=== PATIENT | female | born 1975 | race African-American/Black ===

== ENCOUNTER 2017-10-24 05:17 | Inpatient (IN) | payer BC ==
[~2017-10-24] VITALS: Ht 170.2 cm; Wt 119.0 kg
[~2017-10-24 05:17] MED LIST: BYST5TAB2 PO; DIOV160T9 PO; LEVO88TA2 PO; PANT20 PO
[2017-10-24] MEDS ORDERED: APREPITANT 40 MG CAP PO SCH (06:15)
[2017-10-24] MEDS ORDERED: METOPROLOL TARTRATE 25 MG TAB PO PRN (06:15)
[2017-10-24] MEDS ORDERED: metroNIDAZOLE 500 MG INJ 100 ML IV SCH (06:15)
[2017-10-24] MEDS ORDERED: SCOPOLAMINE 1.5 MG PATCH T-DERMAL SCH (06:15)
[2017-10-24] MEDS ORDERED: ceFAZolin 2 GM PREMIX 50 ML IV SCH (06:15)
[2017-10-24] MEDS ORDERED: ONDANSETRON ODT 4 MG TAB PO SCH (06:15)
[2017-10-24] MEDS ORDERED: POVIDONE IODINE 5% (ANTISEPSIS KIT) 4 APPLICATIONS EACH NARE PRN (06:15)
[2017-10-24] MEDS ORDERED: CHLORHEXIDINE GLUCONATE 2 % 1 PACK (2 CLOTHS) TOPICAL PRN (06:15)
[2017-10-24] MEDS ORDERED: ACETAMINOPHEN 1000 MG/100 ML 100 ML IV SCH (06:15)
[2017-10-24] MEDS ORDERED: SODIUM CHLORID 0.9% 500 ML IV PRN (06:15)
[2017-10-24] MEDS ORDERED: LACTATED RINGER'S 1000 ML IV PRN (06:15)
[2017-10-24] MEDS ORDERED: KETAMINE HCL 50 MG/5 ML SYRINGE ONE (06:33)
[2017-10-24] MEDS ORDERED: CLON0.1T PO (06:36)
[2017-10-24] MEDS ORDERED: BUPIVACAINE/EPINEPHRINE 0.5% PF 10 ML VIAL ONE ×2 (06:58)
--- NOTE | 2017-10-24 07:31 | HHI.PR ---
Immediate Post Op Note Procedure Date: Oct 24, 2017 Pre Op Diagnosis: morbid obesity bmi 40, HTN, Gerd Post Op Diagnosis: same Surgeon: Yang Bhardwaj MD Manager Fixed Income(s): kayla Procedure: lap vertical sleeve Findings: no leak Complications: none Specimen(s) removed: none Estimated blood loss: 5cc Anesthesia: General Drains: None Patient to: PACU Patient Condition: Good Yang Bhardwaj MD Oct 24, 2017 07:31
[2017-10-24] MEDS ORDERED: ACETAMINOPHEN 325MG/HYDROcodone 7.5MG/15ML UDC PO PRN (07:45)
[2017-10-24] MEDS ORDERED: diphenhydrAMINE HCL 50 MG/ML VIAL IV PUSH PRN (07:45)
[2017-10-24] MEDS ORDERED: MORPHINE SULFATE 30 MG/30 ML PCA IV SCH (07:45)
[2017-10-24] MEDS ORDERED: NALOXONE HCL 0.4 MG/ML AMP IV PUSH PRN (07:45)
[2017-10-24] MEDS ORDERED: diphenhydrAMINE HCL ELIXIR 12.5 MG/5 ML CUP PO PRN (07:45)
[2017-10-24] MEDS ORDERED: SUGAMMADEX SODIUM 200 MG/2 ML VIAL IV PUSH ONE (09:23)
[2017-10-24] MEDS ORDERED: DO NOT ADM ANY ANTICOAGULANT DRUGS PRN (09:44)
[2017-10-24] MEDS ORDERED: MIDAZOLAM HCL 2 MG/2 ML VIAL ONE (09:55)
[2017-10-24] MEDS: D5-1/2 NS + KCL 20 MEQ INJ 1,000 ML IV SCH ×3 (10:00→20:20)
[2017-10-24] MEDS: METOCLOPRAMIDE HCL 10 MG/2 ML VIAL IV PUSH SCH ×3 (11:00→23:17)
[2017-10-24] MEDS: PANTOPRAZOLE SOD 40 MG DELAYED RELEASE TAB PO SCH (11:00)
[2017-10-24] MEDS ORDERED: LIDOCAINE HCL 1% PF 5 ML SYRINGE OTHER ONE (12:00)
[2017-10-24] MEDS ORDERED: GLYCOPYRROLATE 1 MG/5 ML SYRINGE IV PUSH ONE (12:00)
[2017-10-24] MEDS ORDERED: ROCURONIUM INJ 50 MG/5 ML SYRINGE IV PUSH ONE (12:00)
[2017-10-24] MEDS ORDERED: DEXAMETHASONE SOD PHOS 4 MG/ML VIAL IV ONE ×2 (12:00)
[2017-10-24] MEDS ORDERED: ONDANSETRON HCL 4 MG/2 ML VIAL IV PUSH ONE ×2 (12:00)
[2017-10-24] MEDS ORDERED: NEOSTIGMINE 5 MG/5 ML SYRINGE IV PUSH ONE (12:00)
[2017-10-24] MEDS ORDERED: LACTATED RINGER'S 1000 ML INJ 1,000 ML IV ONE ×2 (12:00)
[2017-10-24] MEDS ORDERED: ePHEDrine/NS 25 MG/5 ML SYRINGE IV ONE ×2 (12:00)
[2017-10-24] MEDS ORDERED: KETOROLAC TROMETHAMINE 30 MG/ML (IVP) VIAL IV PUSH ONE (12:00)
[2017-10-24] MEDS ORDERED: PROPOFOL 200 MG/20 ML AMP IV ONE ×2 (12:00)
[2017-10-24] MEDS ORDERED: PHENYLEPH/NS 1000 MCG/10 ML SYR IV ONE ×2 (12:00)
[2017-10-24] MEDS: ENOXAPARIN SODIUM 40 MG/0.4 ML SYRINGE SQ SCH (14:00)
[2017-10-24] MEDS: PCA - TOTAL MG MORPHINE DELIVERED PER SHIFT SCH ×2 (14:00→22:00)
[2017-10-24] MEDS: ONDANSETRON ODT 4 MG TAB PO PRN (14:15)
[2017-10-24] MEDS: metroNIDAZOLE 500 MG INJ 100 ML IV SCH ×2 (14:16→23:17)
--- NOTE | 2017-10-24 16:33 | MP ---
cc: Yang Bhardwaj MD DATE OF OPERATION: 10/24/2017 DATE OF PROCEDURE: 10/24/2017. PREOPERATIVE DIAGNOSIS: Morbid obesity, body mass index of 40, hypertension, reflux. POSTOPERATIVE DIAGNOSES: Morbid obesity, body mass index of 40, hypertension, reflux. PROCEDURE PERFORMED: Laparoscopic vertical sleeve gastrectomy over a 36 ViSiGi bougie. SURGEON: Yang Bhardwaj MD ENERGY EFFICIENCY ENGINEER: See the OR sheet. ANESTHESIA: GETA. IV FLUIDS: See anesthesia sheet. ESTIMATED BLOOD LOSS: 5 mL. DRAINS: None. COMPLICATIONS: None. WOUND CLASSIFICATION: Clean/contaminated. SPECIMENS: None. INDICATIONS: The patient is a 42-year-old female who presents with multiple attempts at weight loss without success. She has a BMI of 40 and multiple comorbidities as well. Decision was made for bariatric surgery including laparoscopic sleeve gastrectomy. DETAILS OF PROCEDURE: The patient was taken to the operating suite, placed in supine position. She was prepped and draped in the usual sterile fashion after induction of general endotracheal anesthesia. Brief timeout done stating the correct patient, the procedure, the surgical site. We were all in agreement with this. Attention was directed to 15 cm distal to the xiphoid in the midline. Local anesthetic injected. A small-stab kumar incision was made. The 5 mm Optiview port entered the abdomen safely. The abdomen was insufflated to 15 mm pneumoperitoneum. Several other ports were placed after the patient was placed in reverse Trendelenburg and airplaned to the right. A 5 mm right upper quadrant port for liver retraction was done. A 15 mm right lower quadrant port was done. A left lower quadrant 5 mm port was done, followed by a left upper quadrant 5 mm port. The radha flex retractor was placed to retract the left lobe of the liver. The vasculature along the greater curvature of the stomach was stuck. Using harmonic scalpel, starting a distance 5 cm proximal to the pylorus and carried all up to the angle of His. Angle of His was taken down bluntly. The posterior ligament and traction attachments were taken down separately. A 36-[place] ViSiGi bougie was placed and directed down the stomach. This was placed to suction. Division of the stomach was done 5 cm proximal to pylorus all the way toward the angle of His. Removal of approximately 80% of the stomach was done. This was done using an Endo GI stapler starting with a black load, followed by green loads and then gold loads. All william were reinforced with SeamGuard. A distance was done from 2 cm left of the angle incisura at the staple line in a distance of 1 cm from the GE junction staple line. The pylorus and the staple line was checked with methylene blue, 60 mL x 2, without evidence of leaking. The gastrocolic ligament was sutured to the posterior leaflet of the SeamGuard using interrupted [id number] 2-0 Vicryl. Hemostasis was obtained. Evicel was placed. The stomach was removed through the right lower quadrant 15 mm port. The fascia was closed with 0 Vicryl. Pneumoperitoneum was removed. All ports were removed. Radha-Flex was removed. The patient was flattened out, 4-0 Monocryl used for subcuticular sutures at all port sites. Sterile dressing including Mastisol and Steri-Strips were placed. The patient tolerated the procedure well. All lap and instrument counts were correct at the end of procedure, the patient was extubated and taken stable to PACU. MD AKOSUA Krueger/BALA , 03:24 PM , 04:32 PM
[2017-10-24 18:00] VITALS: O2SAT 100
[2017-10-24 20:00] VITALS: BP 159/85; PULSE 96; RESP 18; TEMP 98.6; O2SAT 98
[2017-10-25] VITALS (8 sets, daily range): BP systolic 142–195; BP diastolic 79–96; PULSE 73–93; RESP 17–19; TEMP 98.4–98.9; O2SAT 97–99
[2017-10-25] MEDS: PCA - TOTAL MG MORPHINE DELIVERED PER SHIFT SCH (06:00)
[2017-10-25] MEDS: METOCLOPRAMIDE HCL 10 MG/2 ML VIAL IV PUSH SCH (06:14)
[2017-10-25] MEDS: metroNIDAZOLE 500 MG INJ 100 ML IV SCH (06:18)
[2017-10-25 07:25] LABS: AUTOMATED NEUTROPHIL # 9.8 TH/MM3 (1.8-7.7); BASOPHIL # 0.1 TH/MM3 (0-0.2); BASOPHIL % 0.7 % (0.0-2.0); EOSINOPHIL % 0.1 % (0.0-4.0); HEMATOCRIT 41.6 % (35.0-46.0); LYMPH % 9.1 % (9.0-44.0); LYMPHOCYTE # 1.1 TH/MM3 (1.0-4.8); MEAN CORPUSCULAR HEMOGLOBIN 30.5 PG (27.0-34.0); MEAN CORPUSCULAR HGB CONC 33.5 % (32.0-36.0); MEAN PLATELET VOLUME 7.4 FL (7.0-11.0); MONO % 7.7 % (0.0-8.0); MONOCYTE # 0.9 TH/MM3 (0-0.9); NEUT % 82.4 % (16.0-70.0); PLATELET COUNT 245 TH/MM3 (150-450); RED BLOOD COUNT 4.58 MIL/MM3 (4.00-5.30); RED CELL DISTRIBUTION WIDTH 13.5 % (11.6-17.2); WHITE BLOOD COUNT 11.9 TH/MM3 (4.0-11.0)
[2017-10-25 07:44] LABS: BICARBONATE 24.6 MEQ/L (21.0-32.0); CALCIUM 8.7 MG/DL (8.5-10.1); CREATININE 0.87 MG/DL (0.50-1.00); MAGNESIUM 1.9 MG/DL (1.5-2.5)
[2017-10-25] MEDS: PANTOPRAZOLE SOD 40 MG DELAYED RELEASE TAB PO SCH (09:13)
[2017-10-25] MEDS: ACETAMINOPHEN 325MG/HYDROcodone 7.5MG/15ML UDC PO PRN ×2 (09:14→15:49)
[2017-10-25] MEDS: D5-1/2 NS + KCL 20 MEQ INJ 1,000 ML IV SCH ×2 (10:00→17:16)
[2017-10-25] MEDS ORDERED: METOCLOPRAMIDE HCL 10 MG/2 ML VIAL IV PUSH PRN (11:00)
[2017-10-25] MEDS ORDERED: BENZOCAINE-MENTHOL (SUGAR FREE) 15 MG-3.6 MG LOZENGE BUCCAL ONE (11:15)
--- NOTE | 2017-10-25 11:15 | HHI.PR ---
Subjective Subjective Notes No GI complaints Tolerating PO fluids Objective Vitals/I&O Vital Signs Date Time Temp Pulse Resp B/P (MAP) Pulse Ox O2 Delivery O2 Flow Rate FiO2 10/25/17 08:00 98.6 93 18 158/79 (105) 97 10/24/17 18:00 Nasal Cannula 2.00 Labs Laboratory Tests Test 10/25/17 06:55 White Blood Count 11.9 Red Blood Count 4.58 Hemoglobin 14.0 Hematocrit 41.6 Mean Corpuscular Volume 91.0 Mean Corpuscular Hemoglobin 30.5 Mean Corpuscular Hemoglobin Concent 33.5 Red Cell Distribution Width 13.5 Platelet Count 245 Mean Platelet Volume 7.4 Neutrophils (%) (Auto) 82.4 Lymphocytes (%) (Auto) 9.1 Monocytes (%) (Auto) 7.7 Eosinophils (%) (Auto) 0.1 Basophils (%) (Auto) 0.7 Neutrophils # (Auto) 9.8 Lymphocytes # (Auto) 1.1 Monocytes # (Auto) 0.9 Eosinophils # (Auto) 0.0 Basophils # (Auto) 0.1 CBC Comment DIFF FINAL Differential Comment Blood Urea Nitrogen 4 Creatinine 0.87 Random Glucose 118 Calcium Level 8.7 Magnesium Level 1.9 Sodium Level 137 Potassium Level 3.1 Chloride Level 102 Carbon Dioxide Level 24.6 Anion Gap 10 Estimat Glomerular Filtration Rate 86 Cardiovascular: Regular Lungs: Clear Abdomen: Post-op tenderness Extremities: Perfused Wound Wound : Wound Location: Abdomen Appearance: Clean & Dry A/P Assessment and Plan 42yo F POD#1 laparoscopic VSG -Restart clonidine and bystolic, will monitor BP -Replace serum K -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 I reviewed and agree with the findings presented. I attest that I had a [id number] encounter with the patient on the same day, and personally performed and documented my assessment and findings in the medical record. Aidan Gordon CUSTOMER EXPERIENCE PROFESSIONAL Oct 25, 2017 11:15
[2017-10-25] MEDS: NEBIVOLOL 5 MG TAB PO SCH (12:03)
[2017-10-25] MEDS: LEVOTHYROXINE SODIUM 88 MCG TAB PO SCH (12:04)
[2017-10-25] MEDS: POTASSIUM CHLOR 20 MEQ PREMIX 100 ML IV SCH ×2 (12:04→13:00)
[2017-10-25] MEDS ORDERED: cloNIDine HCL 0.1 MG TAB PO ONE (14:15)
[2017-10-25] MEDS ORDERED: ENALAPRILAT 2.5 MG/2 ML VIAL IV PUSH PRN (14:15)
[2017-10-25] MEDS: ENOXAPARIN SODIUM 40 MG/0.4 ML SYRINGE SQ SCH (15:06)
[2017-10-25] MEDS: VALSARTAN 160 MG TAB PO SCH (15:06)
[2017-10-25] MEDS: ONDANSETRON ODT 4 MG TAB PO PRN (15:11)
[2017-10-25] MEDS ORDERED: POTASSIUM CHLORIDE 20 MEQ PWD PACKET PO ONE (15:45)
[2017-10-25] MEDS: cloNIDine HCL 0.1 MG TAB PO SCH (20:24)
[2017-10-26] VITALS: BP 133/80; PULSE 92; RESP 17; TEMP 98.9; O2SAT 97
[2017-10-26] MEDS: D5-1/2 NS + KCL 20 MEQ INJ 1,000 ML IV SCH ×2 (02:00→10:08)
[2017-10-26] MEDS: ACETAMINOPHEN 325MG/HYDROcodone 7.5MG/15ML UDC PO PRN ×2 (03:42→13:30)
[2017-10-26] MEDS: LEVOTHYROXINE SODIUM 88 MCG TAB PO SCH (06:29)
[2017-10-26 08:00] VITALS: BP 142/70; PULSE 75; RESP 16; TEMP 98.2; O2SAT 97
[2017-10-26] MEDS ORDERED: ENALAPRILAT 1.25 MG/ML VIAL IV PUSH PRN (08:30)
[2017-10-26] MEDS: NEBIVOLOL 5 MG TAB PO SCH (08:39)
[2017-10-26] MEDS: VALSARTAN 160 MG TAB PO SCH (08:39)
[2017-10-26] MEDS: cloNIDine HCL 0.1 MG TAB PO SCH (08:39)
[2017-10-26] MEDS: PANTOPRAZOLE SOD 40 MG DELAYED RELEASE TAB PO SCH (08:39)
[2017-10-26] MEDS ORDERED: ACETAMINOPHEN 500 MG CPLT PO ONE (08:45)
[2017-10-26 09:42] LABS: AUTOMATED NEUTROPHIL # 4.9 TH/MM3 (1.8-7.7); BASOPHIL % 0.6 % (0.0-2.0); EOSINOPHIL % 0.3 % (0.0-4.0); HEMATOCRIT 39.3 % (35.0-46.0); HEMOGLOBIN 13.2 GM/DL (11.6-15.3); LYMPH % 23.5 % (9.0-44.0); LYMPHOCYTE # 1.8 TH/MM3 (1.0-4.8); MEAN CELL VOLUME 91.9 FL (80.0-100.0); MEAN CORPUSCULAR HEMOGLOBIN 30.9 PG (27.0-34.0); MEAN CORPUSCULAR HGB CONC 33.7 % (32.0-36.0); MEAN PLATELET VOLUME 7.3 FL (7.0-11.0); MONOCYTE # 0.7 TH/MM3 (0-0.9); NEUT % 65.6 % (16.0-70.0); PLATELET COUNT 233 TH/MM3 (150-450); RED BLOOD COUNT 4.27 MIL/MM3 (4.00-5.30); RED CELL DISTRIBUTION WIDTH 13.6 % (11.6-17.2); WHITE BLOOD COUNT 7.5 TH/MM3 (4.0-11.0)
[2017-10-26 10:08] LABS: BICARBONATE 25.9 MEQ/L (21.0-32.0); CALCIUM 8.6 MG/DL (8.5-10.1); CREATININE 0.72 MG/DL (0.50-1.00)
[2017-10-26 10:34] VITALS: O2SAT 97
[2017-10-26 12:00] VITALS: BP 112/59; PULSE 69; RESP 18; TEMP 97.9; O2SAT 98
--- NOTE | 2017-10-26 13:42 | PD.CONS ---
[facility] Phys[facility] BARBIE Bruce Diagnoses: History of Present Illness 40-year-old female with morbid obesity, hypothyroidism status post partial thyroidectomy, hypertension, who is postoperative gastric sleeve surgery this hospitalization. Patient with tolerated hypertension up to 200 after surgery. Subsequently blood pressure has improved however. Patient says she is feeling all right. Denies any chest pain, shortness of breath, nausea, vomiting, lightheadedness, dizziness, fevers, chills, diarrhea, constipation. She says she snores at home, frequently wakes up tired. She says she will discuss the possibility of sleep apnea with her primary care doctor. She says at home she sleeps on her side because she sleeps better that way, however in the hospital is been sleeping on her back. Review of Systems Except as stated in HPI: all other systems reviewed are Neg Past Family Social History Allergies: Coded Allergies: amlodipine (Verified Allergy, Severe, SWELLING, 10/24/17) Past Medical History Morbid obesity Hypertension Hypothyroidism GERD Past Surgical History Gastric sleeve this hospitalization Partial thyroidectomy Reported Medications Reported Meds & Active Scripts Active Reported Clonidine (Clonidine HCl) 0.1 Mg Tab 0.1 Mg PO BID Protonix (Pantoprazole Sodium) 20 Mg Tab 20 Mg PO DAILY Levothyroxine (Levothyroxine Sodium) 88 Mcg Tab 88 Mcg PO DAILY Diovan Hct (Valsartan-Hydrochlorothiazide) 160-25 Mg Tab 1 Tab PO DAILY Bystolic (Nebivolol) 5 Mg Tab 5 Mg PO DAILY Family History Mother from colon cancer. Father with diabetes and hypertension Social History Non-smoker. Occasional drinker. Denies illicit drugs. Physical Exam Vital Signs Vital Signs Date Time Temp Pulse Resp B/P (MAP) Pulse Ox O2 Delivery O2 Flow Rate FiO2 10/26/17 12:00 97.9 69 18 112/59 (76) 98 10/26/17 10:34 97 10/26/17 08:00 98.2 75 16 142/70 (94) 97 10/26/17 00:00 98.9 92 17 133/80 (97) 97 10/25/17 20:00 98.9 73 17 165/88 (113) 98 10/25/17 16:55 83 142/81 (101) 10/25/17 16:00 98.4 85 19 183/95 (124) 98 Physical Exam GENERAL: This is a well-nourished, well-developed patient, in no apparent distress. And oriented 3. SKIN: No rashes, ecchymoses or lesions. Cool and dry. HEAD: Atraumatic. Normocephalic. No temporal or scalp tenderness. EYES: Pupils equal round and reactive. Extraocular motions intact. No scleral icterus. No injection or drainage. ENT: Nose without bleeding, purulent drainage or septal hematoma. Throat without erythema, tonsillar hypertrophy or exudate. Uvula midline. Airway patent. NECK: Trachea midline. No JVD or lymphadenopathy. Supple, nontender, no meningeal signs. CARDIOVASCULAR: Regular rate and rhythm without murmurs, gallops, or rubs. RESPIRATORY: Clear to auscultation. Breath sounds equal bilaterally. No wheezes , rales, or rhonchi. GASTROINTESTINAL: Abdomen soft, non-tender, nondistended. No hepato-splenomegaly , or palpable masses. No guarding. Abdominal incisions with Steri-Strips intact. MUSCULOSKELETAL: Extremities without clubbing, cyanosis, or edema. No joint tenderness, effusion, or edema noted. No calf tenderness. Negative Homans sign bilaterally. NEUROLOGICAL: Awake and alert. Cranial nerves II through XII intact. Motor and sensory grossly within normal limits. Five out of 5 muscle strength in all muscle groups. Normal speech. Laboratory Laboratory Tests Test 10/26/17 09:15 White Blood Count 7.5 Red Blood Count 4.27 Hemoglobin 13.2 Hematocrit 39.3 Mean Corpuscular Volume 91.9 Mean Corpuscular Hemoglobin 30.9 Mean Corpuscular Hemoglobin Concent 33.7 Red Cell Distribution Width 13.6 Platelet Count 233 Mean Platelet Volume 7.3 Neutrophils (%) (Auto) 65.6 Lymphocytes (%) (Auto) 23.5 Monocytes (%) (Auto) 10.0 Eosinophils (%) (Auto) 0.3 Basophils (%) (Auto) 0.6 Neutrophils # (Auto) 4.9 Lymphocytes # (Auto) 1.8 Monocytes # (Auto) 0.7 Eosinophils # (Auto) 0.0 Basophils # (Auto) 0.0 CBC Comment DIFF FINAL Differential Comment Blood Urea Nitrogen 5 Creatinine 0.72 Random Glucose 102 Calcium Level 8.6 Sodium Level 139 Potassium Level 3.6 Chloride Level 106 Carbon Dioxide Level 25.9 Anion Gap 7 Estimat Glomerular Filtration Rate 107 Result Diagram: 10/26/17 0915 10/26/17 0915 Assessment and Plan Assessment and Plan //Postop gastric sleeve. Postoperative management as per surgical service. //Hypertension. = Suspect this is secondary to untreated sleep apnea. Patient sleeps on her side at home, sleeping on her back after surgery/anesthesia. Blood pressure much improved at this time. Would avoid overtreatment with narcotics. Advised patient that she should look into treatment of sleep apnea with primary care doctor. = Due to concern for dehydration after surgery, could discontinue Diovan, start on clonidine. Follow-up primary care. //Hypothyroidism. Chronic. Continue home meds and follow-up with primary care. //GERD. Continue home PPI. Discussed Condition With Patient, nurse Vladimir Aparicio MD Oct 26, 2017 13:42
--- NOTE | 2017-10-26 15:03 | HHI.PR ---
Subjective Subjective Notes BP much improved No GI complaints Objective Vitals/I&O Vital Signs Date Time Temp Pulse Resp B/P (MAP) Pulse Ox O2 Delivery O2 Flow Rate FiO2 10/26/17 12:00 97.9 69 18 112/59 (76) 98 10/25/17 11:46 21 10/24/17 18:00 Nasal Cannula 2.00 Labs Laboratory Tests Test 10/26/17 09:15 White Blood Count 7.5 Red Blood Count 4.27 Hemoglobin 13.2 Hematocrit 39.3 Mean Corpuscular Volume 91.9 Mean Corpuscular Hemoglobin 30.9 Mean Corpuscular Hemoglobin Concent 33.7 Red Cell Distribution Width 13.6 Platelet Count 233 Mean Platelet Volume 7.3 Neutrophils (%) (Auto) 65.6 Lymphocytes (%) (Auto) 23.5 Monocytes (%) (Auto) 10.0 Eosinophils (%) (Auto) 0.3 Basophils (%) (Auto) 0.6 Neutrophils # (Auto) 4.9 Lymphocytes # (Auto) 1.8 Monocytes # (Auto) 0.7 Eosinophils # (Auto) 0.0 Basophils # (Auto) 0.0 CBC Comment DIFF FINAL Differential Comment Blood Urea Nitrogen 5 Creatinine 0.72 Random Glucose 102 Calcium Level 8.6 Sodium Level 139 Potassium Level 3.6 Chloride Level 106 Carbon Dioxide Level 25.9 Anion Gap 7 Estimat Glomerular Filtration Rate 107 Abdomen: Post-op tenderness Extremities: Perfused Wound Wound : Wound Location: Abdomen Appearance: Clean & Dry A/P Assessment and Plan 42yo F POD# laparoscopic VSG Send home with Valsartan. Pt to monitor BP at home and bring log to next appointment Continue with frequent ambulation Continue to increase fluids as tolerated Discharge Planning D/C home today Aidan Gordon Oct 26, 2017 15:03
[2017-10-26] MEDS ORDERED: VALS1TAB65 PO (15:04)
== END 2017-10-26 15:51 | disposition home or self-care (01) | DRG 621 ==
LOC: HSDC 05:17 → EDSTATUS 07:30 → HSDI 07:33 → N07B 13:03
PROVIDERS: ADMIT Surgery; ATTEND Surgery
PROC: 0DB64Z3 Excision of Stomach, Percutaneous Endoscopic Approach, Vertical (ICD-10-PCS; principal; 2017-10-24 07:18)
DX: E66.01 Morbid (severe) obesity due to excess calories (principal); I10 Essential (primary) hypertension; K21.9 Gastro-esophageal reflux disease without esophagitis; Z68.41 Body mass index [BMI] 40.0-44.9, adult; E89.0 Postprocedural hypothyroidism
CPT/HCPCS: 80048; 83735; 85025; J0131; J0690; J1100; J1650; J1885; J2250; J2270; J2370; J2405; J2710; J2765; J3010; J3480; J7120; J8501